=== PATIENT | male | born 1970 | race Caucasian/White ===

== ENCOUNTER 2024-02-01 20:46 | Emergency (ER) | payer MEDICAID ==
[~2024-02-01] VITALS: Ht 175.3 cm; Wt 74.5 kg
[~2024-02-01 20:46] MED LIST: IBUP-814 PO; NO HOME MEDS
[2024-02-01] MEDS: LIDOcaine 1% W/epiNEPHrine 1:100,000 20ml vial SQ STA (21:36)
[2024-02-01 22:10] VITALS: BP 148/88; PULSE 90; RESP 18; TEMP 98.2; O2SAT 97
== END 2024-02-01 22:13 | disposition home or self-care (01) ==
LOC: ER 20:47
DX: S61.412A Laceration without foreign body of left hand, initial encounter (principal); F15.90 Other stimulant use, unspecified, uncomplicated; F10.90 Alcohol use, unspecified, uncomplicated; Z88.5 Allergy status to narcotic agent; Z79.1 Long term (current) use of non-steroidal anti-inflammatories (NSAID); X58.XXXA Exposure to other specified factors, initial encounter; Y93.89 Activity, other specified; Y92.89 Other specified places as the place of occurrence of the external cause; Y99.8 Other external cause status
CPT/HCPCS: 12002; 99282; A6222; A6258